=== PATIENT | male | born 1940 | race Caucasian/White ===

== ENCOUNTER 2016-12-29 15:53 | Inpatient (IN) | payer MEDICARE ==
[~2016-12-29] VITALS: Ht 182.9 cm; Wt 133.7 kg
[~2016-12-29 15:53] MED LIST: ASPIRIN 81M81 MG/TA2 PO; COREG12.5 MG PO; DIGITEK0.25 MG PO; LIPITOR 40MG TA40 MG PO; LOTENSIN40 MG PO; NORCO 325 MG-7.1 TAB PO; SYNTHROID 0.0.025 MG PO; ZYLOPRIM 300MG300 MG PO
[2016-12-29 16:28] LABS: BASO % 0.4 % (0.0-2.0); EOS # 0.1 (0.0-0.7); EOS % 1.7 % (0-4.0); GRAN % 75.5 % (42.2-75.2); LYMPH # 0.8 (1.2-3.4); LYMPH % 15.5 % (20.0-51.0); MEAN CELL VOLUME 99 fl (80.0-100.0); MEAN CORPUSCULAR HGB CONC 30 g/dl (33.0-37.0); MONO # 0.4 (0.1-0.6); MONO % 6.7 % (1.7-9.3); PLATELET COUNT 80 K/mm3 (130-400); RED BLOOD COUNT 2.68 M/mm3 (4.20-5.60); REDCELL DISTRIBUTION WIDTH-CV 16.9 % (11.5-14.5); WHITE BLOOD COUNT 5.3 K/mm3 (4.8-10.8)
[2016-12-29 16:39] LABS: ADJUSTED CALCIUM 8.4 mg/dL (8.4-10.2); ALANINE AMINOTRANSFERASE 27 U/L (21-72); ALKALINE PHOSPHATASE 98 U/L (50-136); ANION GAP 12 mmol/L (7-16); BILIRUBIN,TOTAL 1.2 mg/dL (0.0-1.0); BLOOD UREA NITROGEN 29 mg/dL (9-20); CALCIUM 8.4 mg/dL (8.4-10.2); CARBON DIOXIDE 30 mmol/L (22-30); CHLORIDE 96 mmol/L (98-107); CREATININE, serum 1.97 mg/dL (0.66-1.25); GLUCOSE 91 mg/dL (74-106); POTASSIUM 4.8 mmol/L (3.4-5.0); SODIUM 138 mmol/L (137-145); TOTAL PROTEIN 7.4 gm/dL (6.4-8.2)
[2016-12-29 16:47] LABS: B-TYPE NATRIURETIC PEPTIDE 6490 pg/mL (0-125)
[2016-12-29 16:50] LABS: HEMATOCRIT 26.6 % (42.0-52.0); MEAN CORPUSCULAR HEMOGLOBIN 30 pg (27.0-31.0)
[2016-12-29 20:16] VITALS: BP 132/71; PULSE 78; TEMP 97.4
[2016-12-29 23:18] LABS: TROPONIN-I 0.026 ng/mL (0.000-0.034)
[2016-12-30 00:12] VITALS: BP 109/70; PULSE 71; TEMP 98
[2016-12-30 04:11] VITALS: BP 122/65; PULSE 71; TEMP 97.9
[2016-12-30 07:20] VITALS: BP 132/84; PULSE 41; TEMP 97.5
[2016-12-30 08:18] LABS: INR 1.2 (0.8-3.0); PROTHROMBIN TIME 13.2 SECONDS (9.7-12.8)
[2016-12-30 08:25] LABS: ADJUSTED CALCIUM 8.4 mg/dL (8.4-10.2); ALBUMIN 3.5 gm/dL (3.5-5.0); BILIRUBIN,TOTAL 1.3 mg/dL (0.0-1.0); CREATININE, serum 1.9 mg/dL (0.66-1.25); POTASSIUM 4.8 mmol/L (3.4-5.0); TOTAL PROTEIN 6.5 gm/dL (6.4-8.2)
[2016-12-30 08:28] LABS: BASO % 0.5 % (0.0-2.0); EOS # 0.1 (0.0-0.7); EOS % 1.5 % (0-4.0); GRAN # 2.9 (1.4-6.5); GRAN % 72.8 % (42.2-75.2); LYMPH # 0.7 (1.2-3.4); LYMPH % 18.4 % (20.0-51.0); MEAN CELL VOLUME 100 fl (80.0-100.0); MEAN CORPUSCULAR HGB CONC 31 g/dl (33.0-37.0); MEAN PLATELET VOLUME 10.2 fl (7.4-10.4); MONO # 0.3 (0.1-0.6); MONO % 6.3 % (1.7-9.3); PLATELET COUNT 75 K/mm3 (130-400); RED BLOOD COUNT 2.34 M/mm3 (4.20-5.60); REDCELL DISTRIBUTION WIDTH-CV 16.8 % (11.5-14.5)
[2016-12-30 08:33] LABS: HEMATOCRIT 23.5 % (42.0-52.0); HEMOGLOBIN 7.2 g/dl (13.5-18.0); MEAN CORPUSCULAR HEMOGLOBIN 31 pg (27.0-31.0)
[2016-12-30 08:34] LABS: TROPONIN-I 0.026 ng/mL (0.000-0.034)
[2016-12-30 08:53] LABS: THYROID STIMULATING HORMONE 60.7 uIU/mL (0.465-4.680)
[2016-12-30 11:02] LABS: TOTAL IRON BINDING CAPACITY 344 ug/dL (261-462)
[2016-12-30 11:59] VITALS: BP 135/86; PULSE 70; TEMP 97.6
[2016-12-30 13:13] LABS: PH 5 (5-8); SQUAMOUS EPITHELIAL None Seen /hpf; URINE APPEARANCE Clear; URINE BACTERIA None Seen /hpf; URINE BILIRUBIN Negative (NEGATIVE); URINE BLOOD 2+ (NEGATIVE); URINE COLOR Yellow; URINE GLUCOSE Negative (NEGATIVE); URINE KETONE Negative (NEGATIVE); URINE UROBILINOGEN Negative (NEGATIVE); URINE WBC 0-2 /hpf
[2016-12-30 13:15] LABS: URINE PROTEIN:CREAT RATIO 0.15 (0.00-0.14)
[2016-12-30 13:21] LABS: ARTERIAL BLD GAS O2 SATURATION 99.2 % (92-100); ARTERIAL BLD GAS TCO2 CT 33.4; ARTERIAL BLOOD GAS BASE EXCESS 4.3 (-2-2); ARTERIAL BLOOD GAS HCO3 31.5 meq/L (22-26); ARTERIAL BLOOD GAS PHT 7.32 C (7.35-7.45); ARTERIAL BLOOD GAS pH 7.32 (7.35-7.45); OXYHEMOGLOBIN 98.3 %
[2016-12-30 13:22] LABS: ARTERIAL BLOOD GAS PO2 361.8 mmHg (80-100); ARTERIAL BLOOD GAS PO2T 361.8 (80-100); ATS? YES
[2016-12-30 16:10] LABS: ARTERIAL BLD GAS TCO2 CT 30.2; ARTERIAL BLOOD GAS BASE EXCESS 2.7 (-2-2); ARTERIAL BLOOD GAS HCO3 28.7 meq/L (22-26); ARTERIAL BLOOD GAS PHT 7.37 C (7.35-7.45); ARTERIAL BLOOD GAS PO2 93.2 mmHg (80-100); ARTERIAL BLOOD GAS PO2T 93.2 (80-100); ARTERIAL BLOOD GAS pH 7.37 (7.35-7.45); OXYHEMOGLOBIN 95.3 %
[2016-12-30 16:11] LABS: ATS? YES
[2016-12-30 16:42] VITALS: BP 125/71; PULSE 83; TEMP 97
[2016-12-30 18:23] LABS: CALCIUM 8.1 mg/dL (8.4-10.2); CREATININE, serum 1.88 mg/dL (0.66-1.25); POTASSIUM 4.8 mmol/L (3.4-5.0)
[2016-12-30 18:37] LABS: TROPONIN-I 0.035 ng/mL (0.000-0.034)
[2016-12-30 20:00] VITALS: BP 136/91; PULSE 71; TEMP 99.2
[2016-12-31] VITALS (17 sets, daily range): BP systolic 99–126; BP diastolic 51–89; PULSE 63–98; TEMP 96.9–98.6
[2016-12-31 06:04] LABS: MEAN CELL VOLUME 102 fl (80.0-100.0); MEAN CORPUSCULAR HGB CONC 30 g/dl (33.0-37.0); MEAN PLATELET VOLUME 9.7 fl (7.4-10.4); PLATELET COUNT 64 K/mm3 (130-400); RED BLOOD COUNT 2.19 M/mm3 (4.20-5.60); REDCELL DISTRIBUTION WIDTH-CV 16.8 % (11.5-14.5); WHITE BLOOD COUNT 7.5 K/mm3 (4.8-10.8)
[2016-12-31 06:07] LABS: ADD PATHOLOGY DIFF REVIEW NO; HEMATOCRIT 22.3 % (42.0-52.0); HEMOGLOBIN 6.7 g/dl (13.5-18.0); MEAN CORPUSCULAR HEMOGLOBIN 31 pg (27.0-31.0)
[2016-12-31 06:18] LABS: CALCIUM 7.5 mg/dL (8.4-10.2); CREATININE, serum 1.94 mg/dL (0.66-1.25); POTASSIUM 4.5 mmol/L (3.4-5.0)
[2016-12-31 06:48] LABS: THYROID STIMULATING HORMONE 38.6 uIU/mL (0.465-4.680)
[2016-12-31 06:57] LABS: BAND 49 % (0-10); NEUTROPHILS 45 % (42.0-75.2); TOTAL CELLS COUNTED 100
[2016-12-31 06:58] LABS: PLATELET ESTIMATE DECREASED (NORMAL)
[2016-12-31 06:59] LABS: ANISOCYTOSIS 1+; HYPOCHROMIA 2+
[2017-01-01] VITALS: BP 129/93; PULSE 77; TEMP 98
[2017-01-01 00:46] LABS: HEMATOCRIT 27.1 % (42.0-52.0); HEMOGLOBIN 8.3 g/dl (13.5-18.0)
[2017-01-01 04:00] VITALS: BP 104/61; PULSE 81; TEMP 98.1
[2017-01-01 05:34] LABS: BASO % 0.1 % (0.0-2.0); EOS % 0.4 % (0-4.0); GRAN # 6.1 (1.4-6.5); GRAN % 84.3 % (42.2-75.2); LYMPH # 0.6 (1.2-3.4); LYMPH % 8.7 % (20.0-51.0); MEAN CELL VOLUME 100 fl (80.0-100.0); MEAN CORPUSCULAR HGB CONC 30 g/dl (33.0-37.0); MEAN PLATELET VOLUME 9.5 fl (7.4-10.4); MONO # 0.4 (0.1-0.6); MONO % 5.8 % (1.7-9.3); PLATELET COUNT 59 K/mm3 (130-400); RED BLOOD COUNT 2.66 M/mm3 (4.20-5.60); REDCELL DISTRIBUTION WIDTH-CV 17.3 % (11.5-14.5); WHITE BLOOD COUNT 7.2 K/mm3 (4.8-10.8)
[2017-01-01 05:42] LABS: HEMATOCRIT 26.6 % (42.0-52.0); HEMOGLOBIN 7.9 g/dl (13.5-18.0); MEAN CORPUSCULAR HEMOGLOBIN 30 pg (27.0-31.0)
[2017-01-01 05:48] LABS: CALCIUM 7.6 mg/dL (8.4-10.2); CREATININE, serum 2.23 mg/dL (0.66-1.25); PHOSPHOROUS 4.8 mg/dL (2.5-4.5); POTASSIUM 4.6 mmol/L (3.4-5.0)
[2017-01-01 08:00] VITALS: BP 96/71; PULSE 77; TEMP 97.7
[2017-01-01 12:00] VITALS: BP 99/64; PULSE 73; TEMP 97.7
[2017-01-01 15:14] VITALS: BP 92/56; PULSE 72; TEMP 97.5
[2017-01-01 16:29] LABS: CALCIUM 7.5 mg/dL (8.4-10.2); CREATININE, serum 2.49 mg/dL (0.66-1.25); POTASSIUM 4.7 mmol/L (3.4-5.0)
[2017-01-01 22:03] VITALS: BP 105/56; PULSE 70; TEMP 97.5
[2017-01-02] VITALS (7 sets, daily range): BP systolic 80–125; BP diastolic 42–73; PULSE 70–74; TEMP 97.3–98.1
[2017-01-02 01:55] LABS: ADJUSTED CALCIUM 8.4 mg/dL (8.4-10.2); ALBUMIN 2.8 gm/dL (3.5-5.0); BILIRUBIN,TOTAL 1.1 mg/dL (0.0-1.0); CALCIUM 7.4 mg/dL (8.4-10.2); CREATININE, serum 2.64 mg/dL (0.66-1.25); POTASSIUM 4.8 mmol/L (3.4-5.0); TOTAL PROTEIN 5.7 gm/dL (6.4-8.2)
[2017-01-02 07:46] LABS: BASO % 0.1 % (0.0-2.0); EOS # 0.1 (0.0-0.7); EOS % 0.9 % (0-4.0); GRAN % 85.3 % (42.2-75.2); LYMPH # 0.5 (1.2-3.4); LYMPH % 7.6 % (20.0-51.0); MEAN CELL VOLUME 100 fl (80.0-100.0); MEAN CORPUSCULAR HGB CONC 30 g/dl (33.0-37.0); MEAN PLATELET VOLUME 9.5 fl (7.4-10.4); MONO # 0.4 (0.1-0.6); PLATELET COUNT 62 K/mm3 (130-400); RED BLOOD COUNT 2.87 M/mm3 (4.20-5.60); REDCELL DISTRIBUTION WIDTH-CV 16.8 % (11.5-14.5)
[2017-01-02 07:48] LABS: HEMATOCRIT 28.7 % (42.0-52.0); HEMOGLOBIN 8.7 g/dl (13.5-18.0); MEAN CORPUSCULAR HEMOGLOBIN 30 pg (27.0-31.0)
[2017-01-02 08:03] LABS: CALCIUM 7.7 mg/dL (8.4-10.2); CREATININE, serum 2.78 mg/dL (0.66-1.25); MAGNESIUM 2.1 mg/dL (1.6-2.3); PHOSPHOROUS 5.3 mg/dL (2.5-4.5); POTASSIUM 4.9 mmol/L (3.4-5.0)
[2017-01-02 08:40] LABS: VANCOMYCIN TROUGH 18.42 ug/mL (7.00-20.00)
[2017-01-02 15:59] LABS: PERITONEAL -POLYMORPHONUCLEAR 66.3 % (0-25); PERITONEAL FLUID RBC 1000 /mm3 (0-0)
[2017-01-03] VITALS (7 sets, daily range): BP systolic 93–150; BP diastolic 33–81; PULSE 70–88; TEMP 96.6–98.5
[2017-01-03 06:21] LABS: MEAN CELL VOLUME 99 fl (80.0-100.0); MEAN CORPUSCULAR HGB CONC 30 g/dl (33.0-37.0); MEAN PLATELET VOLUME 9.9 fl (7.4-10.4); PLATELET COUNT 68 K/mm3 (130-400); RED BLOOD COUNT 2.89 M/mm3 (4.20-5.60); REDCELL DISTRIBUTION WIDTH-CV 16.5 % (11.5-14.5); WHITE BLOOD COUNT 6.8 K/mm3 (4.8-10.8)
[2017-01-03 06:26] LABS: ADD PATHOLOGY DIFF REVIEW NO; HEMATOCRIT 28.7 % (42.0-52.0); HEMOGLOBIN 8.7 g/dl (13.5-18.0); MEAN CORPUSCULAR HEMOGLOBIN 30 pg (27.0-31.0)
[2017-01-03 06:39] LABS: CALCIUM 7.5 mg/dL (8.4-10.2); CREATININE, serum 2.79 mg/dL (0.66-1.25); MAGNESIUM 2.1 mg/dL (1.6-2.3); PHOSPHOROUS 5.1 mg/dL (2.5-4.5); POTASSIUM 5.1 mmol/L (3.4-5.0)
[2017-01-03 07:18] LABS: BAND 11 % (0-10); NEUTROPHILS 83 % (42.0-75.2); TOTAL CELLS COUNTED 100
[2017-01-03 07:19] LABS: ANISOCYTOSIS 1+; HYPOCHROMIA 1+
[2017-01-03 07:20] LABS: PLATELET ESTIMATE DECREASED (NORMAL)
[2017-01-03 10:59] LABS: PLEURAL FLUID - PMN 57.2 % (0-25)
[2017-01-03 11:08] LABS: PLEURAL FLUID RIGHT SIDE
[2017-01-03 11:09] LABS: PLEURAL FLUID APPEARANCE CLEAR; PLEURAL FLUID COLOR YELLOW
[2017-01-03 12:08] LABS: GLUCOSE,PLEURAL FLUID 74 mg/dL
[2017-01-03 23:10] LABS: Fluid Type Pleural (())
[2017-01-04 04:28] VITALS: BP 122/63; PULSE 74; TEMP 98.1
[2017-01-04 07:31] LABS: INR 1.2 (0.8-3.0)
[2017-01-04 07:32] LABS: BASO % 0.4 % (0.0-2.0); EOS # 0.1 (0.0-0.7); EOS % 1.1 % (0-4.0); LYMPH # 0.7 (1.2-3.4); LYMPH % 14.1 % (20.0-51.0); MEAN CELL VOLUME 99 fl (80.0-100.0); MEAN CORPUSCULAR HGB CONC 31 g/dl (33.0-37.0); MEAN PLATELET VOLUME 10.4 fl (7.4-10.4); MONO # 0.4 (0.1-0.6); MONO % 7.8 % (1.7-9.3); PLATELET COUNT 72 K/mm3 (130-400); RED BLOOD COUNT 2.88 M/mm3 (4.20-5.60); REDCELL DISTRIBUTION WIDTH-CV 16.4 % (11.5-14.5); WHITE BLOOD COUNT 5.2 K/mm3 (4.8-10.8)
[2017-01-04 07:40] LABS: HEMATOCRIT 28.4 % (42.0-52.0); HEMOGLOBIN 8.7 g/dl (13.5-18.0); MEAN CORPUSCULAR HEMOGLOBIN 30 pg (27.0-31.0)
[2017-01-04 07:46] LABS: ADJUSTED CALCIUM 8.7 mg/dL (8.4-10.2); ALBUMIN 2.6 gm/dL (3.5-5.0); BILIRUBIN,TOTAL 1.1 mg/dL (0.0-1.0); CALCIUM 7.6 mg/dL (8.4-10.2); CREATININE, serum 2.65 mg/dL (0.66-1.25); POTASSIUM 4.6 mmol/L (3.4-5.0); TOTAL PROTEIN 5.5 gm/dL (6.4-8.2)
[2017-01-04 09:08] VITALS: BP 138/76; PULSE 70; TEMP 98.4
[2017-01-04 11:46] VITALS: BP 126/62; PULSE 84; TEMP 98
[2017-01-04 16:32] VITALS: BP 115/64; PULSE 79; TEMP 98.5
[2017-01-04 20:26] VITALS: BP 156/95; PULSE 85; TEMP 97.1
[2017-01-04 20:47] LABS: ANA SCREEN with REFLEX Negative (Negative)
[2017-01-05 00:20] VITALS: BP 136/61; PULSE 89; TEMP 98.8
[2017-01-05 03:35] VITALS: BP 144/85; PULSE 79; TEMP 97.4
[2017-01-05 07:14] LABS: BASO % 0.4 % (0.0-2.0); EOS # 0.1 (0.0-0.7); EOS % 1.5 % (0-4.0); GRAN # 3.2 (1.4-6.5); GRAN % 68.1 % (42.2-75.2); LYMPH # 0.8 (1.2-3.4); LYMPH % 18.1 % (20.0-51.0); MEAN CELL VOLUME 97 fl (80.0-100.0); MEAN CORPUSCULAR HGB CONC 31 g/dl (33.0-37.0); MEAN PLATELET VOLUME 10.2 fl (7.4-10.4); MONO # 0.5 (0.1-0.6); MONO % 10.8 % (1.7-9.3); PLATELET COUNT 75 K/mm3 (130-400); RED BLOOD COUNT 2.95 M/mm3 (4.20-5.60); REDCELL DISTRIBUTION WIDTH-CV 16.4 % (11.5-14.5); WHITE BLOOD COUNT 4.7 K/mm3 (4.8-10.8)
[2017-01-05 07:24] LABS: HEMATOCRIT 28.6 % (42.0-52.0); HEMOGLOBIN 8.8 g/dl (13.5-18.0); MEAN CORPUSCULAR HEMOGLOBIN 30 pg (27.0-31.0)
[2017-01-05 07:31] LABS: CALCIUM 7.8 mg/dL (8.4-10.2); CREATININE, serum 2.32 mg/dL (0.66-1.25); POTASSIUM 4.4 mmol/L (3.4-5.0)
[2017-01-05 08:20] VITALS: BP 126/55; PULSE 73; TEMP 98.2
[2017-01-05 12:52] VITALS: BP 123/62; BP 141/109; PULSE 73; TEMP 98.2
[2017-01-05 15:22] VITALS: BP 114/49; PULSE 76; TEMP 98.2
[2017-01-05 22:59] LABS: IEPS IGA 463 mg/dL (101-645); IEPS IGG 967 mg/dL (540-1822); SERUM PROTEIN TOTAL 5.3 g/dL (6.0-7.6)
[2017-01-05 23:15] VITALS: BP 121/53; PULSE 73; TEMP 98.6
[2017-01-06 00:46] LABS: HAPTOGLOBIN 151 mg/dL (36-195)
[2017-01-06 00:50] VITALS: BP 121/53; PULSE 73; TEMP 98.2
[2017-01-06 02:52] VITALS: BP 138/69; PULSE 75; TEMP 98.6
[2017-01-06 06:38] LABS: MEAN CELL VOLUME 97 fl (80.0-100.0); MEAN CORPUSCULAR HGB CONC 31 g/dl (33.0-37.0); MEAN PLATELET VOLUME 10.1 fl (7.4-10.4); PLATELET COUNT 66 K/mm3 (130-400); RED BLOOD COUNT 2.88 M/mm3 (4.20-5.60); REDCELL DISTRIBUTION WIDTH-CV 16.4 % (11.5-14.5)
[2017-01-06 06:48] LABS: ADD PATHOLOGY DIFF REVIEW NO; HEMOGLOBIN 8.8 g/dl (13.5-18.0); MEAN CORPUSCULAR HEMOGLOBIN 31 pg (27.0-31.0)
[2017-01-06 06:55] LABS: CALCIUM 7.9 mg/dL (8.4-10.2); CREATININE, serum 2.05 mg/dL (0.66-1.25); POTASSIUM 4.4 mmol/L (3.4-5.0)
[2017-01-06 07:38] VITALS: BP 127/79; PULSE 53; TEMP 97.9
[2017-01-06 08:48] LABS: ANISOCYTOSIS 1+; BAND 6 % (0-10); EOSINOPHIL 2 % (0-4); NEUTROPHILS 61 % (42.0-75.2); PLATELET ESTIMATE DECREASED (NORMAL); TOTAL CELLS COUNTED 100
[2017-01-06 11:08] VITALS: BP 99/41; PULSE 80; TEMP 97.1
[2017-01-06] MEDS ORDERED: FERROUS SU325 MG/TAB PO (11:25)
[2017-01-06] MEDS ORDERED: FLEXERIL5 MG PO (11:25)
[2017-01-06] MEDS ORDERED: LANOXIN 0.25M0.25 MG PO (11:26)
[2017-01-06] MEDS ORDERED: COREG 3.123.125 MG/T PO (11:28)
[2017-01-06] MEDS ORDERED: ALDACTONE50 MG PO (11:29)
[2017-01-06] MEDS ORDERED: ZAROXOLYN 2.52.5 MG PO (11:30)
[2017-01-06] MEDS ORDERED: K-TAB20 PO (11:33)
[2017-01-06] MEDS ORDERED: LASIX 40MG TABL40 MG PO (11:33)
[2017-01-06] MEDS ORDERED: PROTONIX 40MG T40 MG PO (11:35)
[2017-01-06] MEDS ORDERED: NORCO 325 MG-51 TAB PO ×2 (11:42)
[2017-01-06 13:29] LABS: ALBUMIN FRACTION 2.8 g/dL (2.6-4.5); ALPHA 1 FRACTION 0.4 g/dL (0.3-0.5); ALPHA 1 PERCENTAGE 7.4 % (3.4-8.3); ALPHA 2 FRACTION 0.6 g/dL (0.6-1.2); ALPHA 2 PERCENTAGE 10.9 % (8.4-17.5); BETA 1 FRACTION 0.4 g/dL (0.4-0.6); BETA 1 PERCENTAGE 6.7 % (5.4-8.9); BETA 2 FRACTION 0.4 g/dL (0.2-0.5); BETA 2 PERCENTAGE 7.6 % (3.8-7.7); GAMMA FRACTION 0.8 g/dL (0.4-1.7); GAMMA PERCENTAGE 15.4 % (8.1-23.0); IEPS IGM 94 mg/dL (22-240)
[2017-01-06] MEDS ORDERED: NS INT FLUSH 1010 ML IV (15:23)
[2017-01-06] MEDS ORDERED: HEPARIN LOCK FLU5 M1 IV (15:23)
[2017-01-06 17:44] LABS: A1 PHENOTYPE 212 mg/dL (())
[2017-01-07 10:18] LABS: KAPPA FREE LIGHT CHAIN-SERUM 6.89 mg/dL (()); KAPPA LAMBDA RATIO 1.93 (())
== END 2017-01-06 18:59 | DRG 291 ==
LOC: COL.ER 15:53 → MEDICAL 17:07 → ICU 12-30 10:51 → MEDICAL 01-01 15:05
PROVIDERS: Emergency Medicine; Family Medicine; Internal Medicine; Internal Medicine Gastroenterology; Nurse Practitioner Family; Physician Assistant
PROC: 0W9G3ZX Drainage of Peritoneal Cavity, Percutaneous Approach, Diagnostic (ICD-10-PCS; principal; 2017-01-02)
PROC: 0W993ZX Drainage of Right Pleural Cavity, Percutaneous Approach, Diagnostic (ICD-10-PCS; 2017-01-03)
DX: I13.0 Hypertensive heart and chronic kidney disease with heart failure and stage 1 through stage 4 chronic kidney disease, or unspecified chronic kidney disease (principal); I50.23 Acute on chronic systolic (congestive) heart failure; N17.9 Acute kidney failure, unspecified; R18.8 Other ascites; E87.1 Hypo-osmolality and hyponatremia; E87.3 Alkalosis; K76.6 Portal hypertension; Z68.42 Body mass index [BMI] 45.0-49.9, adult; I83.212 Varicose veins of right lower extremity with both ulcer of calf and inflammation; I83.222 Varicose veins of left lower extremity with both ulcer of calf and inflammation; N18.3 Chronic kidney disease, stage 3 (moderate); I42.0 Dilated cardiomyopathy; I48.91 Unspecified atrial fibrillation; D64.9 Anemia, unspecified; E03.2 Hypothyroidism due to medicaments and other exogenous substances; T38.1X6A Underdosing of thyroid hormones and substitutes, initial encounter; Z95.0 Presence of cardiac pacemaker; K74.69 Other cirrhosis of liver; E66.01 Morbid (severe) obesity due to excess calories
CPT/HCPCS: 99223-AI; 99232-AI; 99233-AI; 99239; A4315; C1751; J1644; J1940; J2270; J2543; J3370; J7040; J7050; P9016

== ENCOUNTER → 2017-01-10 | Outpatient (REF) ==
[~2017-01-10] MED LIST changes: +ALDACTONE50 MG PO; +COREG 3.123.125 MG/T PO; +FERROUS SU325 MG/TAB PO; +FLEXERIL5 MG PO; +HEPARIN LOCK FLU5 M1 IV; +K-TAB20 PO; +LANOXIN 0.25M0.25 MG PO; +LASIX 40MG TABL40 MG PO; +NORCO 325 MG-51 TAB PO; +NS INT FLUSH 1010 ML IV; +PROTONIX 40MG T40 MG PO; +ZAROXOLYN 2.52.5 MG PO
== END ==
LOC: ZAIV 06:00
DX: Z01.89 Encounter for other specified special examinations (principal)

== ENCOUNTER → 2017-01-16 | Outpatient (CLI) | payer MEDICARE | LOC: WCC 09:48 | DX: L97.829 Non-pressure chronic ulcer of other part of left lower leg with unspecified severity (principal); L97.519 Non-pressure chronic ulcer of other part of right foot with unspecified severity; L97.419 Non-pressure chronic ulcer of right heel and midfoot with unspecified severity; L98.499 Non-pressure chronic ulcer of skin of other sites with unspecified severity; S01.312A Laceration without foreign body of left ear, initial encounter; M62.3 Immobility syndrome (paraplegic); R60.1 Generalized edema; L03.114 Cellulitis of left upper limb | CPT/HCPCS: 13919; 13973; A6199; G0463 ==

== ENCOUNTER → 2017-01-20 | Outpatient (CLI) | payer MEDICARE | LOC: WCC 12:09 | DX: L89.612 Pressure ulcer of right heel, stage 2 (principal); I87.2 Venous insufficiency (chronic) (peripheral); L97.929 Non-pressure chronic ulcer of unspecified part of left lower leg with unspecified severity; S91.114A Laceration without foreign body of right lesser toe(s) without damage to nail, initial encounter | CPT/HCPCS: G0463 ==

== ENCOUNTER → 2017-01-25 | Outpatient (CLI) | payer MEDICARE | LOC: WCC 11:14 | DX: L89.612 Pressure ulcer of right heel, stage 2 (principal); I87.2 Venous insufficiency (chronic) (peripheral); L97.929 Non-pressure chronic ulcer of unspecified part of left lower leg with unspecified severity; S91.114A Laceration without foreign body of right lesser toe(s) without damage to nail, initial encounter | CPT/HCPCS: 27517; A6207; G0463 ==

== ENCOUNTER → 2017-02-01 | Outpatient (CLI) | payer MEDICARE | LOC: WCC 10:36 | DX: I87.2 Venous insufficiency (chronic) (peripheral) (principal); L89.619 Pressure ulcer of right heel, unspecified stage | CPT/HCPCS: 17717; 27517; A6207; A6212; G0463 ==

== ENCOUNTER → 2017-02-13 | Outpatient (CLI) | payer MEDICARE | LOC: WCC 14:30 | DX: R60.1 Generalized edema (principal) | CPT/HCPCS: 17717; A6212; G0463 ==

== ENCOUNTER 2017-11-18 22:55 | Emergency (ER) | payer MEDICARE ==
[~2017-11-18] VITALS: Wt 125.0 kg
[~2017-11-18 22:55] MED LIST changes: +EYE DROPS REDNE15 ML OP
[2017-11-18 22:59] VITALS: TEMP 99.6
[2017-11-18 23:48] LABS: MEAN CELL VOLUME 95 fl (80.0-100.0); MEAN CORPUSCULAR HGB CONC 31 g/dl (33.0-37.0); MEAN PLATELET VOLUME 9.8 fl (7.4-10.4); PLATELET COUNT 90 K/mm3 (130-400); RED BLOOD COUNT 2.42 M/mm3 (4.20-5.60); REDCELL DISTRIBUTION WIDTH-CV 15.7 % (11.5-14.5)
[2017-11-18 23:56] LABS: HEMATOCRIT 22.9 % (42.0-52.0); MEAN CORPUSCULAR HEMOGLOBIN 29 pg (27.0-31.0)
[2017-11-19 00:01] LABS: ALANINE AMINOTRANSFERASE 27 U/L (21-72); ALBUMIN 3.2 gm/dL (3.5-5.0); ALKALINE PHOSPHATASE 90 U/L (50-136); ANION GAP 12 mmol/L (7-16); AST,SGOT 31 U/L (15-37); BILIRUBIN,TOTAL 0.8 mg/dL (0.0-1.0); BLOOD UREA NITROGEN 37 mg/dL (9-20); CALCIUM 8.3 mg/dL (8.4-10.2); CARBON DIOXIDE 24 mmol/L (22-30); CHLORIDE 100 mmol/L (98-107); CREATININE, serum 2.26 mg/dL (0.66-1.25); GLUCOSE 97 mg/dL (74-106); LIPASE 195 U/L (23-300); MAGNESIUM 1.9 mg/dL (1.6-2.3); PHOSPHOROUS 4.5 mg/dL (2.5-4.5); POTASSIUM 5.4 mmol/L (3.4-5.0); SODIUM 136 mmol/L (137-145); TOTAL PROTEIN 6.8 gm/dL (6.4-8.2)
[2017-11-19 00:03] LABS: INR 1.2 (0.8-3.0)
[2017-11-19 00:06] LABS: PARTIAL THROMBOPLASTIN TIME 35.6 SECONDS (26.0-37.0)
[2017-11-19 00:13] LABS: TROPONIN-I 0.021 ng/mL (0.000-0.034)
[2017-11-19] MEDS ORDERED: FLEXERIL5 MG PO (00:15)
[2017-11-19] MEDS ORDERED: LEVOXYL0.075 MG PO (00:15)
[2017-11-19] MEDS ORDERED: ZAROXOLYN 2.52.5 MG (00:16)
[2017-11-19] MEDS ORDERED: ALDACTONE 25MG25 M1 PO (00:16)
[2017-11-19] MEDS ORDERED: LASIX 40MG TABL40 MG (00:17)
[2017-11-19] MEDS ORDERED: K-TAB20 (00:17)
[2017-11-19] MEDS ORDERED: ZYLOPRIM 300MG300 MG PO (00:18)
[2017-11-19 00:43] LABS: DIGOXIN < 0.4 ng/mL (0.8-2.0)
[2017-11-19] MEDS ORDERED: LASIX 80MG TABL80 MG PO (01:23)
[2017-11-19 01:43] LABS: BAND 22 % (0-10); BASOPHIL 1 % (0-2); LYMPHOCYTE 5 % (20.0-51.0); METAMYELOCYTE 2 % (0-0); NEUTROPHILS 70 % (42.0-75.2)
[2017-11-19 01:44] LABS: ANISOCYTOSIS 2+; HYPOCHROMIA 3+; PLATELET ESTIMATE DECREASED (NORMAL)
[2017-11-19 02:50] VITALS: BP 106/79; PULSE 112
== END 2017-11-19 02:40 | disposition short-term general hospital (02) ==
LOC: COL.ER 22:55
PROVIDERS: Emergency Medicine
DX: I13.0 Hypertensive heart and chronic kidney disease with heart failure and stage 1 through stage 4 chronic kidney disease, or unspecified chronic kidney disease (principal); N18.9 Chronic kidney disease, unspecified; I50.9 Heart failure, unspecified; D64.9 Anemia, unspecified; E03.9 Hypothyroidism, unspecified; I48.91 Unspecified atrial fibrillation; I42.9 Cardiomyopathy, unspecified; Z86.2 Personal history of diseases of the blood and blood-forming organs and certain disorders involving the immune mechanism; Z87.19 Personal history of other diseases of the digestive system; Z95.810 Presence of automatic (implantable) cardiac defibrillator; Z79.82 Long term (current) use of aspirin
CPT/HCPCS: J1940

== ENCOUNTER 2018-03-09 08:30 | Emergency (ER) | payer MEDICARE ==
[~2018-03-09 08:30] MED LIST changes: +ALDACTONE 25MG25 M1 PO; +LASIX 40MG TABL40 MG; +LASIX 80MG TABL80 MG PO; +LEVOXYL0.075 MG PO; +ZAROXOLYN 2.52.5 MG
[2018-03-09 08:35] VITALS: TEMP 94.6
[2018-03-09 08:57] LABS: BASO % 0.3 % (0.0-2.0); EOS # 0.2 (0.0-0.7); EOS % 4.6 % (0-4.0); GRAN # 2.1 (1.4-6.5); GRAN % 56.8 % (42.2-75.2); LYMPH # 1.1 (1.2-3.4); LYMPH % 29.5 % (20.0-51.0); MEAN CELL VOLUME 94 fl (80.0-100.0); MEAN CORPUSCULAR HGB CONC 30 g/dl (33.0-37.0); MEAN PLATELET VOLUME 9.2 fl (7.4-10.4); MONO # 0.3 (0.1-0.6); MONO % 8.5 % (1.7-9.3); PLATELET COUNT 86 K/mm3 (130-400); RED BLOOD COUNT 3.44 M/mm3 (4.20-5.60); REDCELL DISTRIBUTION WIDTH-CV 16.6 % (11.5-14.5)
[2018-03-09 09:03] LABS: HEMATOCRIT 32.3 % (42.0-52.0); HEMOGLOBIN 9.7 g/dl (13.5-18.0); MEAN CORPUSCULAR HEMOGLOBIN 28 pg (27.0-31.0)
[2018-03-09 09:05] LABS: ALANINE AMINOTRANSFERASE 20 U/L (21-72); ALBUMIN 3.2 gm/dL (3.5-5.0); ALKALINE PHOSPHATASE 100 U/L (50-136); ANION GAP 7 mmol/L (7-16); AST,SGOT 28 U/L (15-37); BILIRUBIN,TOTAL 0.5 mg/dL (0.0-1.0); BLOOD UREA NITROGEN 25 mg/dL (9-20); CALCIUM 7.7 mg/dL (8.4-10.2); CARBON DIOXIDE 28 mmol/L (22-30); CHLORIDE 104 mmol/L (98-107); CREATININE, serum 2.09 mg/dL (0.66-1.25); GLUCOSE 85 mg/dL (74-106); POTASSIUM 5.1 mmol/L (3.4-5.0); SODIUM 140 mmol/L (137-145)
[2018-03-09] MEDS ORDERED: SOMA250 MG PO (09:09)
[2018-03-09 09:52] LABS: INR 1.1 (0.8-3.0); PROTHROMBIN TIME 12.2 SECONDS (9.7-12.8)
[2018-03-09] MEDS ORDERED: SYNTHROID0.1 MG/TAB PO (13:12)
[2018-03-09] MEDS ORDERED: PERCOCET 325 MG1 TA2 PO (13:14)
[2018-03-09 14:12] VITALS: BP 110/77; PULSE 105
== END 2018-03-09 14:50 | disposition home or self-care (01) ==
LOC: COL.ER 08:30
PROVIDERS: Emergency Medicine
DX: R60.1 Generalized edema (principal); E03.9 Hypothyroidism, unspecified; N18.9 Chronic kidney disease, unspecified; I50.9 Heart failure, unspecified; I48.91 Unspecified atrial fibrillation; Z86.73 Personal history of transient ischemic attack (TIA), and cerebral infarction without residual deficits

== ENCOUNTER 2018-03-14 08:25 | Emergency (ER) | payer MEDICARE ==
[~2018-03-14] VITALS: Ht 152.4 cm; Wt 118.2 kg
[~2018-03-14 08:25] MED LIST changes: +PERCOCET 325 MG1 TA2 PO; +SOMA250 MG PO; +SYNTHROID0.1 MG/TAB PO
[2018-03-14 08:29] VITALS: TEMP 97.6
[2018-03-14 09:33] VITALS: BP 116/91; PULSE 83
== END 2018-03-14 09:25 | disposition home or self-care (01) ==
LOC: COL.ER 08:25
DX: K74.60 Unspecified cirrhosis of liver (principal); I50.9 Heart failure, unspecified; R18.8 Other ascites; I42.9 Cardiomyopathy, unspecified

== ENCOUNTER → 2018-04-09 | Outpatient (CLI) | payer MEDICARE ==
[~2018-04-09] VITALS: Ht 182.9 cm; Wt 135.0 kg
[~2018-04-09] MED LIST changes: +ROXICODONE 55 MG/TAB PO
[2018-04-09 13:42] VITALS: BP 103/74; PULSE 76
[2018-04-09 15:25] VITALS: BP 98/65; PULSE 80
== END ==
LOC: COL.RAD 13:15
DX: K70.31 Alcoholic cirrhosis of liver with ascites (principal)

== ENCOUNTER → 2018-12-03 | Outpatient (CLI) | payer MEDICARE ==
[~2018-12-03] VITALS: Ht 182.9 cm; Wt 122.7 kg
[2018-12-03 11:38] VITALS: BP 120/80; PULSE 71
[2018-12-03 13:45] VITALS: BP 118/80; PULSE 74
== END ==
LOC: COL.RAD 11:11
DX: K70.31 Alcoholic cirrhosis of liver with ascites (principal); I35.0 Nonrheumatic aortic (valve) stenosis; E03.9 Hypothyroidism, unspecified; K42.9 Umbilical hernia without obstruction or gangrene; N18.3 Chronic kidney disease, stage 3 (moderate); Z91.11 Patient's noncompliance with dietary regimen; Z95.0 Presence of cardiac pacemaker

== ENCOUNTER 2020-03-04 11:01 | Emergency (ER) | payer MEDICARE ==
[~2020-03-04] VITALS: Ht 182.9 cm; Wt 113.6 kg
[~2020-03-04 11:01] MED LIST changes: +SYNTHROID 0.10.15 MG PO
[2020-03-04 12:03] LABS: ALBUMIN 3.3 gm/dL (3.5-5.0); BASO % 0.7 % (0.0-2.0); BILIRUBIN,TOTAL 0.7 mg/dL (0.0-1.0); C-REACTIVE PROTEIN 1.9 mg/dL (0.0-0.9); CALCIUM 8.1 mg/dL (8.4-10.2); CREATININE, serum 1.79 (0.66-1.25); EOS # 0.1 (0.0-0.7); EOS % 4.6 % (0-4.0); GRAN # 1.7 (1.4-6.5); GRAN % 58.7 % (42.2-75.2); LYMPH # 0.7 (1.2-3.4); LYMPH % 25.4 % (20.0-51.0); MEAN CELL VOLUME 90 fl (80.0-100.0); MEAN CORPUSCULAR HGB CONC 30 g/dl (33.0-37.0); MEAN PLATELET VOLUME 10.3 fl (7.4-10.4); MONO # 0.3 (0.1-0.6); MONO % 10.2 % (1.7-9.3); PLATELET COUNT 63 K/mm3 (130-400); POTASSIUM 4.9 mmol/L (3.4-5.0); REDCELL DISTRIBUTION WIDTH-CV 15.7 % (11.5-14.5); TOTAL PROTEIN 6.7 gm/dL (6.4-8.2)
[2020-03-04 12:07] LABS: HEMATOCRIT 31.5 % (42.0-52.0); HEMOGLOBIN 9.4 g/dl (13.5-18.0); INR 1.1 (0.8-3.0); MEAN CORPUSCULAR HEMOGLOBIN 27 pg (27.0-31.0); PROTHROMBIN TIME 12.4 SECONDS (9.7-12.8)
[2020-03-04 15:47] LABS: PERITONEAL -POLYMORPHONUCLEAR 8.1 % (0-25); PERITONEAL FLUID RBC 0 /mm3 (0-0)
[2020-03-04 21:32] VITALS: BP 95/65; PULSE 89; TEMP 97.6
== END 2020-03-04 22:18 | disposition home or self-care (01) ==
LOC: COL.ER 11:01
PROVIDERS: Emergency Medicine
DX: R18.8 Other ascites (principal); Z79.890 Hormone replacement therapy
CPT/HCPCS: J7030; P9047

== ENCOUNTER 2020-07-15 17:55 | Emergency (ER) | payer MEDICARE ==
[2020-07-15 19:05] LABS: BASO % 0.6 % (0.0-2.0); EOS # 0.1 (0.0-0.7); EOS % 2.3 % (0-4.0); GRAN # 2.5 (1.4-6.5); GRAN % 70.7 % (42.2-75.2); LYMPH # 0.6 (1.2-3.4); MEAN CELL VOLUME 87 fl (80.0-100.0); MEAN CORPUSCULAR HGB CONC 30 g/dl (33.0-37.0); MONO # 0.3 (0.1-0.6); MONO % 9.1 % (1.7-9.3); PLATELET COUNT 99 K/mm3 (130-400); RED BLOOD COUNT 3.63 M/mm3 (4.20-5.60); REDCELL DISTRIBUTION WIDTH-CV 14.6 % (11.5-14.5)
[2020-07-15 19:09] LABS: HEMATOCRIT 31.7 % (42.0-52.0); HEMOGLOBIN 9.4 g/dl (13.5-18.0); MEAN CORPUSCULAR HEMOGLOBIN 26 pg (27.0-31.0)
[2020-07-15 19:15] LABS: ALBUMIN 3.6 gm/dL (3.5-5.0); BILIRUBIN,TOTAL 0.5 mg/dL (0.0-1.0); C-REACTIVE PROTEIN 2.8 mg/dL (0.0-0.9); CALCIUM 8.2 mg/dL (8.4-10.2); CREATININE, serum 2.13 (0.66-1.25); POTASSIUM 4.8 mmol/L (3.4-5.0); TOTAL PROTEIN 7.4 gm/dL (6.4-8.2)
[2020-07-15 19:25] LABS: TROPONIN-I 0.02 ng/mL (0.000-0.035)
[2020-07-15 19:43] LABS: THYROID STIMULATING HORMONE 48.3 uIU/mL (0.465-4.680)
[2020-07-15 20:58] VITALS: BP 115/68; PULSE 73; TEMP 97.7
== END 2020-07-15 21:00 | disposition home or self-care (01) ==
LOC: COL.ER 17:55
PROVIDERS: Emergency Medicine
DX: R14.0 Abdominal distension (gaseous) (principal); R18.8 Other ascites; E03.9 Hypothyroidism, unspecified; I50.9 Heart failure, unspecified; I48.91 Unspecified atrial fibrillation; Z87.891 Personal history of nicotine dependence; Z95.0 Presence of cardiac pacemaker; Z79.890 Hormone replacement therapy

== ENCOUNTER → 2020-07-16 | Outpatient (CLI) | payer MEDICARE ==
[2020-07-16 10:29] VITALS: BP 116/79; PULSE 73
[2020-07-16 12:30] VITALS: BP 114/66; PULSE 74
== END ==
LOC: COL.RAD 09:57
DX: R14.0 Abdominal distension (gaseous) (principal); R18.8 Other ascites

== ENCOUNTER 2020-08-20 13:40 | Inpatient (IN) | payer MEDICARE ==
[~2020-08-20] VITALS: Ht 182.9 cm; Wt 103.2 kg
[2020-08-20 15:21] LABS: BASO % 0.5 % (0.0-2.0); EOS # 0.1 (0.0-0.7); EOS % 2.6 % (0-4.0); GRAN # 2.8 (1.4-6.5); GRAN % 70.3 % (42.2-75.2); LYMPH # 0.6 (1.2-3.4); LYMPH % 15.9 % (20.0-51.0); MEAN CELL VOLUME 86 fl (80.0-100.0); MEAN CORPUSCULAR HGB CONC 30 g/dl (33.0-37.0); MEAN PLATELET VOLUME 9.2 fl (7.4-10.4); MONO # 0.4 (0.1-0.6); MONO % 10.2 % (1.7-9.3); PLATELET COUNT 113 K/mm3 (130-400); RED BLOOD COUNT 3.29 M/mm3 (4.20-5.60); REDCELL DISTRIBUTION WIDTH-CV 15.6 % (11.5-14.5)
[2020-08-20 15:22] LABS: HEMATOCRIT 28.4 % (42.0-52.0); HEMOGLOBIN 8.4 g/dl (13.5-18.0); MEAN CORPUSCULAR HEMOGLOBIN 26 pg (27.0-31.0)
[2020-08-20 15:31] LABS: ALBUMIN 3.4 gm/dL (3.5-5.0); BILIRUBIN,TOTAL 0.5 mg/dL (0.0-1.0); CALCIUM 8.2 mg/dL (8.4-10.2); CREATININE, serum 1.81 (0.66-1.25); INR 1.1 (0.8-3.0); PROTHROMBIN TIME 12.7 SECONDS (9.7-12.8)
[2020-08-20 15:33] LABS: POTASSIUM 5.9 mmol/L (3.4-5.0)
[2020-08-20 15:43] LABS: TROPONIN-I 0.019 ng/mL (0.000-0.035)
[2020-08-20 16:01] LABS: TSH w REFLEX 42.7 uIU/mL (0.465-4.680)
[2020-08-20 21:25] VITALS: BP 101/62; PULSE 71; TEMP 97.2
[2020-08-20 22:11] LABS: CALCIUM 8.3 mg/dL (8.4-10.2); CREATININE, serum 1.75 (0.66-1.25)
[2020-08-20 22:27] LABS: ARTERIAL BLD GAS O2 SATURATION 95.8 % (92-100); ARTERIAL BLOOD GAS BASE EXCESS 0.3 (-2-2); ARTERIAL BLOOD GAS HCO3 25.3 meq/L (22-26); ARTERIAL BLOOD GAS PCO2 42.6 mmHg (35-45); ARTERIAL BLOOD GAS PO2 81.8 mmHg (80-100); ARTERIAL BLOOD GAS pH 7.39 (7.35-7.45)
[2020-08-20] MEDS ORDERED: K-DUR20 MEQ PO (23:50)
[2020-08-20] MEDS ORDERED: COREG 6.256.25 MG/TA PO (23:50)
[2020-08-20] MEDS ORDERED: LASIX 40MG TABL40 MG PO (23:51)
[2020-08-21] VITALS (7 sets, daily range): BP systolic 92–143; BP diastolic 47–84; PULSE 75–84; TEMP 97.4–98.1
[2020-08-21 00:47] LABS: CALCIUM 8.3 mg/dL (8.4-10.2); CREATININE, serum 1.83 (0.66-1.25); MAGNESIUM 2.2 mg/dL (1.6-2.3); PHOSPHOROUS 3.7 mg/dL (2.5-4.5); POTASSIUM 5.2 mmol/L (3.4-5.0)
[2020-08-21 02:55] LABS: CALCIUM 8.3 mg/dL (8.4-10.2); CREATININE, serum 1.87 (0.66-1.25); POTASSIUM 5.1 mmol/L (3.4-5.0)
[2020-08-21 04:26] LABS: CALCIUM 8.4 mg/dL (8.4-10.2); CHOLESTEROL RISK RATIO 3.6; CREATININE, serum 1.82 (0.66-1.25); POTASSIUM 5.1 mmol/L (3.4-5.0)
[2020-08-21 07:21] LABS: CALCIUM 8.3 mg/dL (8.4-10.2); CREATININE, serum 1.88 (0.66-1.25); POTASSIUM 5.2 mmol/L (3.4-5.0)
[2020-08-21 07:32] LABS: TROPONIN-I 0.025 ng/mL (0.000-0.035)
[2020-08-21 08:42] LABS: CALCIUM 8.3 mg/dL (8.4-10.2); CREATININE, serum 1.81 (0.66-1.25); POTASSIUM 5.3 mmol/L (3.4-5.0)
[2020-08-21 08:47] LABS: COLLECTION METHOD CLEAN CATCH
--- NOTE | 2020-08-21 09:18 | NUR ---
Initial visit; Patient thanked Bus Company Manager for looking in on him and offering God's blessings.
[2020-08-21 10:05] LABS: CALCIUM 8.4 mg/dL (8.4-10.2); CREATININE, serum 1.84 (0.66-1.25); POTASSIUM 5.2 mmol/L (3.4-5.0)
--- NOTE | 2020-08-21 11:40 | NUR ---
Health Care Specialist met with patient to discuss discharge plan. Patient states he lives with his son, Beab (ph#[phone]) in [place] and sees Dr. Parekh for primary care. [facility] with no difficulties. Patient uses a walker for ambulation and reports independence with ADLS. Patient has DPOA-HC on file which designates his son, Beba. Patient plans to return home upon discharge. SW contacted patient's son, Beba to review discharge plan. Beba would like to be contacted by Hospitalist with an update. SW spoke with Hospitalist about this request. SW requested PT/OT orders for patient and will continue to follow.
[2020-08-21 12:01] LABS: PH 5 (5-8); SQUAMOUS EPITHELIAL 0-2 /hpf; URINE APPEARANCE Clear; URINE BACTERIA Many /hpf; URINE BILIRUBIN Negative (NEGATIVE); URINE BLOOD Negative (NEGATIVE); URINE COLOR Yellow; URINE GLUCOSE Negative (NEGATIVE); URINE KETONE Negative (NEGATIVE); URINE LEUKOCYTE ESTERASE Negative (NEGATIVE); URINE NITRATE Negative (NEGATIVE); URINE PROTEIN(semi-quant) Negative (NEGATIVE); URINE RBC 0-2 /hpf; URINE UROBILINOGEN Negative (NEGATIVE)
[2020-08-21 12:11] LABS: CALCIUM 8.3 mg/dL (8.4-10.2); CREATININE, serum 1.83 (0.66-1.25); POTASSIUM 5.2 mmol/L (3.4-5.0)
[2020-08-21 12:23] LABS: TROPONIN-I 0.016 ng/mL (0.000-0.035)
--- NOTE | 2020-08-21 13:23 | NUR ---
Have assisted primary nurse Maykel RN with patient care. Patient has been uneventful throughout shift. call light and personal items within reach at all times.
[2020-08-21 14:25] LABS: CALCIUM 8.1 mg/dL (8.4-10.2); CREATININE, serum 1.77 (0.66-1.25); POTASSIUM 5.3 mmol/L (3.4-5.0)
--- NOTE | 2020-08-21 14:26 | NUR ---
Primary nurse was assisted with [id number] patient care by [facility] AD[facility] student Rona Dexter and [facility] Hannah Quick RN-BC.
--- NOTE | 2020-08-21 14:45 | NUR ---
PATIENT GOING DOWN FOR PARACENTESIS
[2020-08-21 18:35] LABS: CREATININE, serum 1.82 (0.66-1.25); POTASSIUM 5.1 mmol/L (3.4-5.0)
[2020-08-21 18:46] LABS: PERITONEAL -POLYMORPHONUCLEAR 5.4 % (0-25); PERITONEAL FLUID RBC 0 /mm3 (0-0)
--- NOTE | 2020-08-21 20:00 | NUR ---
Assessment complete. Patient is oriented and slightyl drowsy, having returned from paracentesis 2 1/2 hours prior to shift change. He complains of pain in his lower extremities when they are moved but no pain at rest. His abdomen is very edematous, as are his lower extremities. Lungs have fine crackles audible in all lobes. Breathing is shallow but unlabored. [place] box is provided. Call light in reach. Will continue to monitor.
[2020-08-21 20:41] LABS: CREATININE, serum 1.76 (0.66-1.25)
[2020-08-21 22:21] LABS: CALCIUM 7.8 mg/dL (8.4-10.2); CREATININE, serum 1.76 (0.66-1.25)
[2020-08-22] VITALS (7 sets, daily range): BP systolic 85–103; BP diastolic 44–72; PULSE 71–78; TEMP 97.4–98.8
--- NOTE | 2020-08-22 01:32 | NUR ---
BP 85/51 AT THIS TIME; PATIENT HAS JUST BEEN WOKEN UP FROM SLEEPING IN CHAIR. HE DENIES CHEST PAIN OR SOA. DREW SAMPSON NOTIFIED AND AWAITING RECS.
--- NOTE | 2020-08-22 02:02 | NUR ---
DREW SAMPSON CAME TO FLOOR TO ASSESS PATIENT, WHO IS CURRENTLY SLEEPING IN THE RECLINER. NO NEW ORDERS OBTAINED, PATIENT IS NOT SYMPTOMATIC OF LOW BP, WILL CONTINUE TO MONITOR.
[2020-08-22 07:07] LABS: BASO % 0.3 % (0.0-2.0); EOS # 0.1 (0.0-0.7); EOS % 2.2 % (0-4.0); GRAN # 2.6 (1.4-6.5); GRAN % 71.8 % (42.2-75.2); LYMPH # 0.5 (1.2-3.4); LYMPH % 14.8 % (20.0-51.0); MEAN CELL VOLUME 86 fl (80.0-100.0); MEAN CORPUSCULAR HGB CONC 30 g/dl (33.0-37.0); MEAN PLATELET VOLUME 9.6 fl (7.4-10.4); MONO # 0.4 (0.1-0.6); MONO % 10.6 % (1.7-9.3); PLATELET COUNT 104 K/mm3 (130-400); RED BLOOD COUNT 3.38 M/mm3 (4.20-5.60); REDCELL DISTRIBUTION WIDTH-CV 15.7 % (11.5-14.5)
[2020-08-22 07:13] LABS: CALCIUM 7.8 mg/dL (8.4-10.2); CREATININE, serum 1.75 (0.66-1.25); POTASSIUM 4.7 mmol/L (3.4-5.0)
[2020-08-22 07:19] LABS: HEMATOCRIT 29.2 % (42.0-52.0); HEMOGLOBIN 8.7 g/dl (13.5-18.0); MEAN CORPUSCULAR HEMOGLOBIN 26 pg (27.0-31.0)
--- NOTE | 2020-08-22 08:44 | NUR ---
Assessment complete. Patient sitting up in recliner at this time. No complaints of pain or discomfort but states that he is just "so cold". Warm balnkets were provided to the patient. Patient room was decluttered and bed was made at this time. IV site is CD&I. Also states he is hoping to go home today. No other needs were expressed at this time. Will continue to monitor. Call light is in reach.
--- NOTE | 2020-08-22 17:31 | NUR ---
Patient has had an uneventful day. No complaints of pain or discomfort. Sat up in chair for the extent of the day. He called for a standby assist to the restroom multiple times, he does well on his own with walker. Scrotal edema is very evident, pain denies pain. Will continue to monitor. Call light is in reach.
[2020-08-23 03:07] VITALS: BP 96/50; PULSE 80; TEMP 98.6
[2020-08-23 06:35] LABS: BASO % 0.2 % (0.0-2.0); EOS # 0.1 (0.0-0.7); EOS % 2.4 % (0-4.0); GRAN % 71.1 % (42.2-75.2); LYMPH # 0.6 (1.2-3.4); LYMPH % 14.8 % (20.0-51.0); MEAN CELL VOLUME 86 fl (80.0-100.0); MEAN CORPUSCULAR HGB CONC 30 g/dl (33.0-37.0); MEAN PLATELET VOLUME 9.4 fl (7.4-10.4); MONO # 0.5 (0.1-0.6); PLATELET COUNT 105 K/mm3 (130-400); RED BLOOD COUNT 3.27 M/mm3 (4.20-5.60); REDCELL DISTRIBUTION WIDTH-CV 15.8 % (11.5-14.5)
[2020-08-23 06:40] LABS: HEMATOCRIT 28.1 % (42.0-52.0); HEMOGLOBIN 8.5 g/dl (13.5-18.0); MEAN CORPUSCULAR HEMOGLOBIN 26 pg (27.0-31.0)
[2020-08-23 06:49] LABS: CALCIUM 7.4 mg/dL (8.4-10.2); CREATININE, serum 1.72 (0.66-1.25); POTASSIUM 4.7 mmol/L (3.4-5.0)
[2020-08-23 08:40] VITALS: BP 99/53; PULSE 75; TEMP 98.5
--- NOTE | 2020-08-23 09:24 | NUR ---
Assessment complete. Patient sitting up in recliner at this time. Needed to use the restroom. Patient ambulated to the restroom using walker via standby assist and did well. Abdominal distention and scrotal edema are obvious. Patient is complaining of abdominal gas pains this morning stating that he "keeps feeling like he needs to go to the bathroom but its just lots of gas and pee". I assured him that passing gas is a good thing, but that I would mention it to the provider. No other complaints of pain or discomfort were expressed. IV site is CD&I, flushed well. Patient does still complain of being cold, blankets continue to be proivded to the patient for comfort. Will continue to montior. Call light is in reach.
--- NOTE | 2020-08-23 10:31 | NUR ---
SW spoke with patient regarding home health services. Patient was unsure if he would like home health services, but he was willing to accept list of providers and said to check back with him tomorrow. Patient also stated that he would like to receive meals on wheels upon discharge. SW was unable to get in contact with Meals on Wheels via telephone. MARTA will try again Monday. Social work will continue to follow.
[2020-08-23 12:03] VITALS: BP 91/49; PULSE 70; TEMP 97.6
[2020-08-23 16:17] VITALS: BP 89/62; PULSE 83; TEMP 97.8
--- NOTE | 2020-08-23 17:25 | NUR ---
Patient has had an uneventful shift. His stomach cramps and gas pain have been persistent through the day. He requested aspirin or tylenol for the pain. Provider was contacted for this and it was given to the patient per MAR. Patient sat up in recliner most of the day, he is currently restin in bed but wasnt sure how long he would remain comfortable. Blood pressures have remained soft but stable and pt remains asymptomatic. Will continue to monitor. Call light is in reach.
[2020-08-23 20:41] VITALS: BP 90/56; PULSE 81; TEMP 97.4
--- NOTE | 2020-08-23 22:18 | NUR ---
Patient alert and oriented, and able to make needs known. Denies having pain and discomfort. Peripheral INT to right forearm. Site wthout redness, warmth, swelling, and pain. Denies having SOB and dyspnea. LS CTA in upper lobes, diminished in lower. Respirations even and unlabored. HRR. Telemetry in place. Capillary refill less than 3 seconds. Non-tenting skin turgor. BSAx4. Abdomen firm and distended. Patient has trunk/scrotal, and 2+ edema BLE. Voices no questions, needs, or concerns at this time. Resting in recliner with call light within reach.
[2020-08-23 23:31] VITALS: BP 91/63; PULSE 79; TEMP 97.5
[2020-08-24] VITALS (9 sets, daily range): BP systolic 78–110; BP diastolic 38–55; PULSE 70–81; TEMP 97.3–98.1
--- NOTE | 2020-08-24 06:02 | NUR ---
Patient received PRN APAP once this shift for abdominal pain and discomfort. Has voiced no further questions, needs, or concerns at this time. Resting in bed with call light within reach.
[2020-08-24 06:39] LABS: BASO % 0.3 % (0.0-2.0); EOS # 0.1 (0.0-0.7); EOS % 3.7 % (0-4.0); GRAN % 67.4 % (42.2-75.2); LYMPH # 0.5 (1.2-3.4); LYMPH % 18.2 % (20.0-51.0); MEAN CELL VOLUME 84 fl (80.0-100.0); MEAN CORPUSCULAR HGB CONC 30 g/dl (33.0-37.0); MEAN PLATELET VOLUME 9.1 fl (7.4-10.4); MONO # 0.3 (0.1-0.6); MONO % 10.4 % (1.7-9.3); PLATELET COUNT 87 K/mm3 (130-400); RED BLOOD COUNT 2.97 M/mm3 (4.20-5.60); REDCELL DISTRIBUTION WIDTH-CV 15.6 % (11.5-14.5)
[2020-08-24 06:52] LABS: HEMOGLOBIN 7.6 g/dl (13.5-18.0); MEAN CORPUSCULAR HEMOGLOBIN 26 pg (27.0-31.0)
[2020-08-24 06:56] LABS: CALCIUM 7.1 mg/dL (8.4-10.2); CREATININE, serum 1.65 (0.66-1.25); POTASSIUM 3.9 mmol/L (3.4-5.0)
--- NOTE | 2020-08-24 07:33 | NUR ---
PT DENIES PAIN, SITTING UP IN BED EATING BREAKFAST, NO OTHER NEEDS.
--- NOTE | 2020-08-24 08:07 | NUR ---
NOTIFIED NABIL RUSSELL OF LOW BP AND SCHEDULED LASIX. LASIX PLACED ON HOLD
--- NOTE | 2020-08-24 08:20 | NUR ---
IV FLUSHED, CDI, ASSESSMENT PERFORMED, MEDICATIONS GIVEN, OVERALL PLEASANT, AOX4, VITALS REVIEWED, NO OTHER NEEDS.
--- NOTE | 2020-08-24 10:39 | NUR ---
concerned about administration of lasix and a possible paracentesis, talked to richie turcios who notified me it was cardiology orders and they were confident he would be ok. pt napping in room, albumin hanging, bp taken before administration was 92/55
--- NOTE | 2020-08-24 10:57 | NUR ---
CALLED ULTRASOUND ABOUT PARACENTESIS ORDER, PRINTING CONSENT
--- NOTE | 2020-08-24 11:48 | NUR ---
ALBUMIN STILL INFUSING, CONSENT SIGNED FOR PARACENTESIS. NO OTHER NEEDS
--- NOTE | 2020-08-24 12:01 | NUR ---
PT TAKEN DOWN FOR PARACENTESIS
--- NOTE | 2020-08-24 12:46 | NUR ---
First visit from the phlebotomist supervisor/instructor. No needs right now.
--- NOTE | 2020-08-24 14:13 | NUR ---
PT RETURNED FROM PARACENTESIS
--- NOTE | 2020-08-24 15:22 | NUR ---
TYLENOL GIVEN DUE TO PT REPORTING ABD PAIN.
--- NOTE | 2020-08-24 16:08 | NUR ---
TECH ALERTED ME PT HAVING LOW BP. ENTERED ROOM AND PT SLEEPING. WOKE PT UP, PT DENIES LIGHTHEADEDNESS OR DIZZINESS. MANUAL BP READ 81/48. DR. VILLARREAL NOTIFIED.
--- NOTE | 2020-08-24 16:56 | NUR ---
NOTIFIED NABIL RUSSELL OF MOST RECENT MANUAL PRESSURE. ORDERED TO RECHECK IN AN HOUR. PT STILL ASYMPTOMATIC, SITTING UP EATING DINNER.
--- NOTE | 2020-08-24 17:39 | NUR ---
PT CONTINUES TO BE HYPOTENSIVE, LARGE AMOUNT OF FLUID TAKEN OFF IN PARACENTESIS, PHYSICIAN AWARE, ALBUMIN INFUSING, PT REPORTING PAIN BUT TOO SOON TO GIVE TYLENOL A SECOND TIME. PT FREQUENTLY NEEDING TO USE THE RESTROOM. LASIX ON HOLD FOR TONIGHT.
--- NOTE | 2020-08-24 18:17 | NUR ---
ATTEMPTED TO USE TWO HATS IN TOILET TO COLLECT URINE, PT MISSED AND URINE ENDED UP ALL OVER THE FLOOR.
--- NOTE | 2020-08-24 19:13 | NUR ---
pt used cord in bathroom, tech entered and found iv out of pt with blood on gown and floor, albumin stopped and 40ml left in bag. pressure applied to iv site and wrapped with coban. brief placed on pt, gown changed, pt assisted back to bed.
--- NOTE | 2020-08-24 19:50 | NUR ---
Patient assessed at this time. Alert and oriented x 4, and able to make needs known. Reported mild pain to abdomen. New IV started to left forearm. Started Albumin. Denies having SOB and dyspnea. LS CTA in upper lobes, diminished in lower. Respirations even and unlabored. HRR. Telemetry in placed. Capillary refill less than 3 seconds. Non-tenting skin turgor. BSAx4. Abdomen firm, distended. Dressing to abdomen CDI. Patient continues to have scrotal edema and 2+ edema BLE. Redness/purple discoloration to BLE. Patient voices no questions, needs, or concerns at this time. Resting in bed with call light within reach. High fall risk precautions remain in place.
[2020-08-25] VITALS (7 sets, daily range): BP systolic 83–97; BP diastolic 46–59; PULSE 67–82; TEMP 97.4–98.3
--- NOTE | 2020-08-25 05:55 | NUR ---
Patient has been resting in bed with call light within reach. Patient has been urinating more frequently tonight. Has decreased scrotal and BLE edema compared to last night. BPs have been staying 80-90s/40-50s. PA is aware, and received Albumin per orders. Voices no questions, needs, or concerns at this time. Received PRN APAP once this shift for abdominal pain.
--- NOTE | 2020-08-25 07:08 | NUR ---
PT SLEEPING COMFORTABLY IN ROOM, REPORTING ABD PAIN FOR LEATHER CRAFTER
[2020-08-25 07:21] LABS: BASO % 0.4 % (0.0-2.0); EOS # 0.1 (0.0-0.7); EOS % 2.8 % (0-4.0); GRAN # 1.7 (1.4-6.5); GRAN % 66.7 % (42.2-75.2); LYMPH # 0.4 (1.2-3.4); LYMPH % 17.4 % (20.0-51.0); MEAN CELL VOLUME 85 fl (80.0-100.0); MEAN CORPUSCULAR HGB CONC 31 g/dl (33.0-37.0); MEAN PLATELET VOLUME 9.8 fl (7.4-10.4); MONO # 0.3 (0.1-0.6); MONO % 12.3 % (1.7-9.3); PLATELET COUNT 81 K/mm3 (130-400); RED BLOOD COUNT 2.86 M/mm3 (4.20-5.60); REDCELL DISTRIBUTION WIDTH-CV 15.7 % (11.5-14.5)
[2020-08-25 07:23] LABS: HEMATOCRIT 24.2 % (42.0-52.0); HEMOGLOBIN 7.4 g/dl (13.5-18.0); MEAN CORPUSCULAR HEMOGLOBIN 26 pg (27.0-31.0)
[2020-08-25 07:30] LABS: ALBUMIN 2.6 gm/dL (3.5-5.0); BILIRUBIN,TOTAL 0.4 mg/dL (0.0-1.0); CALCIUM 7.1 mg/dL (8.4-10.2); CREATININE, serum 1.5 (0.66-1.25); MAGNESIUM 2.1 mg/dL (1.6-2.3); TOTAL PROTEIN 4.9 gm/dL (6.4-8.2)
--- NOTE | 2020-08-25 08:20 | NUR ---
PT WAI, AOX4, TOOK TYLENOL FOR MINOR ABD PAIN IN AM WITH OTHER MEDICATIONS, BROUGHT PT OJ AND WATER PER PT REQUEST, VITALS REVIEWED, ASSESSMENT PERFORMED. NO OTHER NEEDS.
--- NOTE | 2020-08-25 10:27 | NUR ---
OBTAINED BP BEFORE ADMINISTERING MEDICATION. BP 83/50, ASKED DREW FERRER AND DR. VILLARREAL IT WAS STILL OK TO ADMINSITER MEDICATION, THEY STILL WANTED TO GIVE IT, CARDIOLOGY IS COMFORTABLE WITH BP'S IN THE 80'S. ADMINISTERED PILL, GAVE PT GRAPE JUICE REQUESTED, PT REFUSING BATH OR LINEN CHANGE. UNABLE TO COLLECT ACCURATE OUTPUT DUE TO EDEMETOUS SCROTUM (CANNOT USE HAT OR URINAL), AND REFUSING MCCOY.
--- NOTE | 2020-08-25 11:34 | NUR ---
PT HAVING ASYMPTOMATIC HYPOTENSION. BP INC DESPITE DIURETIC ADMINISTRATION
--- NOTE | 2020-08-25 14:53 | NUR ---
I met with patient at bedside today to talk about goals of care. He states that he is 80 soon and just wants to live out his life in his home with the medications that he needs. He does request Meals on Wheels be arranged for him. He was interested in looking into tele med visits if they would be possible. He isn't wanting any big procedures or "being cut on". He did report that he lost his son very recently and that this has been very hard on him. He reports that he just wants to live out his natural life in his home.
--- NOTE | 2020-08-25 16:34 | NUR ---
Coatings Inspector followed up with patient about Home Health Services. Patient states he does not want HH services but is interested in Meals on Wheels. SW contacted the [facility] and left a message for MOW coordinator. Patient had palliative consult. Janeth Palliative RN advised SW that what is most important to patient is returning home. SW will continue to follow.
[2020-08-25 18:30] LABS: HEMATOCRIT 26.2 % (42.0-52.0); HEMOGLOBIN 7.8 g/dl (13.5-18.0)
--- NOTE | 2020-08-25 18:31 | NUR ---
UNEVENTFUL SHIFT, UP TO BATHROOM FREQUENTLY, NO OTHER NEEDS
--- NOTE | 2020-08-25 20:06 | NUR ---
Patient assessed at this time. Alert and oriented, and able to make needs known. Denies having pain and discomfort at this time. Peripheral INT to left forearm. Site without redness, warmth, swelling, and pain. Denies having SOB and dyspnea. LS CTA in upper lobes, diminished in lower. Respirations even and unlabored. HRR. Telemetry in place. Capillary refill less than 3 seconds. Non-tenting skin turgor. BSAx4. Abdomen soft and non-tender. Decreased swelling to abdomen, scortum, and BLE. Redness/discoloration continues to BLE and scrotum. Dressing to abdomen from paracentesis is CDI. Voices no questions, needs, or concerns at this time. Resting in bed with call light within reach. High fall risk precautions in place.
--- NOTE | 2020-08-25 23:40 | NUR ---
Patient complaining of abdominal pain when walking to bathroom. Given PRN APAP as requested.
[2020-08-26] VITALS (8 sets, daily range): BP systolic 71–103; BP diastolic 37–64; PULSE 71–76; TEMP 97.5–97.9
--- NOTE | 2020-08-26 05:56 | NUR ---
Patient has gone to the bathroom multiple times during the night. Received PRN APAP once this shift for abdominal pain. Patient's BP was 70s/40s around 0400. DREW Moore aware, and recheck around 0500 was 80s/50s. PA aware. Patient continues to be asymptomatic with low BPs. Resting in bed with call light within reach. Voices no further questions, needs, or concerns at this time. High fall risk precautions remain in place.
[2020-08-26 07:05] LABS: BASO % 0.4 % (0.0-2.0); EOS # 0.1 (0.0-0.7); GRAN # 1.8 (1.4-6.5); HEMATOCRIT 25.7 % (42.0-52.0); HEMOGLOBIN 7.9 g/dl (13.5-18.0); LYMPH # 0.5 (1.2-3.4); LYMPH % 19.6 % (20.0-51.0); MEAN CELL VOLUME 84 fl (80.0-100.0); MEAN CORPUSCULAR HEMOGLOBIN 26 pg (27.0-31.0); MEAN CORPUSCULAR HGB CONC 31 g/dl (33.0-37.0); MEAN PLATELET VOLUME 9.3 fl (7.4-10.4); MONO # 0.3 (0.1-0.6); MONO % 9.6 % (1.7-9.3); PLATELET COUNT 89 K/mm3 (130-400); RED BLOOD COUNT 3.07 M/mm3 (4.20-5.60); REDCELL DISTRIBUTION WIDTH-CV 15.6 % (11.5-14.5)
[2020-08-26 07:25] LABS: CALCIUM 6.9 mg/dL (8.4-10.2); CREATININE, serum 1.47 (0.66-1.25); MAGNESIUM 1.9 mg/dL (1.6-2.3); POTASSIUM 4.1 mmol/L (3.4-5.0)
--- NOTE | 2020-08-26 10:14 | NUR ---
Assessment complete. Patient siting up at side of bed at time of entry. States that he feels better today. No complaints of pain or discomfort at this time. He moved from bed to chair while I was in the room, ambulated well. Swelling in his legs has improved but it still present. No other needs were expressed at this time. Call light is in reach.
--- NOTE | 2020-08-26 13:37 | NUR ---
Caramel Maker contacted Emily at [facility] to follow up on Meals on Wheels. Emily advised she spoke with patient yesterday by phone. Patient will need to contact Emily by phone once he is home so that Emily can complete assessment over the phone, then patient can begin having meals delivered. SW will continue to follow.
--- NOTE | 2020-08-26 17:09 | NUR ---
Patient has had a very uneventful shift. He spent part of the day in the chair and part of the in the bed. Patient seems much more comfortable today, minimal needs. Will continue to montior. Call light is in reach.
--- NOTE | 2020-08-26 20:50 | NUR ---
Patient assessed at this time. Alert and oriented x 4, and able to make needs known. Complained of level 2 pain to abdomen. Given PRN APAP as requested for pain. Peripheral INT to left forearm flushed. Site without redness, warmth, swelling, and pain. Denies having SOB and dyspnea. LS CTA in upper lobes, diminished in lower. Respirations even and unlabored. HRR. Telemetry in place. Capillary refill less than 3 seconds. Non-tenting skin turgor. BSAx4. Abdomen soft and non-tender. Hernia present. 1+ edema BLE, and edema continues to scrotum. Patient states he he feeling much better and ready to go home. Continues to have low BPs, but asymptomatic. Voices no questions, needs, or concerns at this time. Resting in bed with call light within reach.
[2020-08-27 00:11] VITALS: BP 92/50; PULSE 71; TEMP 97.6
[2020-08-27 04:23] VITALS: BP 91/55; PULSE 73; TEMP 98.7
--- NOTE | 2020-08-27 05:34 | NUR ---
Patient has received PRN APAP twice this shift for abdominal pain. Has denied having any other pain or discomfort. Has been resting in bed with call light within reach. Has called for assistance with going to the bathroom. Voices no questions, needs, or concerns at this time.
[2020-08-27 07:18] VITALS: BP 91/55; PULSE 71; TEMP 97.5
[2020-08-27 07:36] LABS: BASO % 0.4 % (0.0-2.0); EOS # 0.1 (0.0-0.7); EOS % 3.4 % (0-4.0); GRAN # 1.7 (1.4-6.5); GRAN % 64.1 % (42.2-75.2); LYMPH # 0.6 (1.2-3.4); LYMPH % 21.4 % (20.0-51.0); MEAN CELL VOLUME 84 fl (80.0-100.0); MEAN CORPUSCULAR HGB CONC 31 g/dl (33.0-37.0); MONO # 0.3 (0.1-0.6); MONO % 10.7 % (1.7-9.3); PLATELET COUNT 86 K/mm3 (130-400); RED BLOOD COUNT 3.06 M/mm3 (4.20-5.60); REDCELL DISTRIBUTION WIDTH-CV 15.7 % (11.5-14.5)
[2020-08-27 07:47] LABS: CALCIUM 7.1 mg/dL (8.4-10.2); CREATININE, serum 1.36 (0.66-1.25); POTASSIUM 4.1 mmol/L (3.4-5.0)
[2020-08-27 07:48] LABS: HEMATOCRIT 25.7 % (42.0-52.0); MEAN CORPUSCULAR HEMOGLOBIN 26 pg (27.0-31.0)
--- NOTE | 2020-08-27 08:35 | NUR ---
Assessment complete. Patient resting in bed on entry, requesting when he would be going home. He seems to be frustrated that "Drs are never going to figure out what is wrong with me" and "according to [facility] I was supposed to a few years ago but I never did". I assured him we will see what is determined on rounds since his pressure is still pretty low. No complaints of pain or discomfort. IV site CD&I, flushed well. Will continue to monitor. Call light is in reach.
[2020-08-27] MEDS ORDERED: DEMADEX10 MG PO (09:26)
[2020-08-27] MEDS ORDERED: ASPIRIN E.C. 8181 MG PO (09:27)
[2020-08-27] MEDS ORDERED: ADVOCATE BLOOD1 EAC1 MC (09:36)
--- NOTE | 2020-08-27 10:17 | NUR ---
I met with patient today to talk about going home and suggestions for being able to remain at home. Strongly encouraged home health services for nursing and therapy to work with his doctor to monitor bp's,labs, setting up scheduled times for paracentesis, and general follow through with his health. Pt initially agreed to home health services but became more reluctant as we discussed contacting a specific agency and setting up visit. Support provided and home health strongly encouraged.
[2020-08-27 12:24] VITALS: BP 100/51; PULSE 81; TEMP 97.5
--- NOTE | 2020-08-27 14:16 | NUR ---
Patient left the floor at this time. Discharge paperwork was discussed. Patient seemed frustrated with the amount of appointments and paperwork I was handing him and was dismissive with some of it but I attempted to stay positive. No further questions or concerns. Patient escorted out via wheelchair.
--- NOTE | 2020-08-27 16:47 | NUR ---
Wire Frame Lamp Shade Maker attended clinical rounds with the team and patient ready for discharge home today. Home Health services are strongly encouraged during rounds. MARTA met with patient who is agreeable to a referral being sent to [facility] but also states he may need to think about it some more. Patient would like to switch primary care provider to Dr. Hurtado in [place]. MARTA contacted Erika at Dr. Perry office and set up an appointment for 08/31/20 @1500. MARTA provided appointment to community services officer and also informed patient of appointment. MARTA assisted patient in completing new patient paperwork and returned documents and discharge orders to Erika at Dr. Hurtado's office. MARTA contacted Paige at [facility] and faxed referral/orders. MARTA contacted patient's son, Sagar who advised he will hop picker patient today. No additional needs at this time.
== END 2020-08-27 14:34 | disposition home or self-care (01) | DRG 432 ==
LOC: COL.ER 13:40 → MEDICAL 18:10
PROVIDERS: Emergency Medicine; Internal Medicine Gastroenterology; Nurse Practitioner Family; Physician Assistant; ADMIT Student in an Organized Health Care Education/Training Program
PROC: 0W9G3ZZ Drainage of Peritoneal Cavity, Percutaneous Approach (ICD-10-PCS; principal; 2020-08-20)
PROC: 0W9G3ZZ Drainage of Peritoneal Cavity, Percutaneous Approach (ICD-10-PCS; 2020-08-24)
DX: K74.60 Unspecified cirrhosis of liver (principal); I50.33 Acute on chronic diastolic (congestive) heart failure; R18.8 Other ascites; I13.0 Hypertensive heart and chronic kidney disease with heart failure and stage 1 through stage 4 chronic kidney disease, or unspecified chronic kidney disease; I48.20 Chronic atrial fibrillation, unspecified; D50.0 Iron deficiency anemia secondary to blood loss (chronic); I25.5 Ischemic cardiomyopathy; E03.9 Hypothyroidism, unspecified; I48.91 Unspecified atrial fibrillation; E78.5 Hyperlipidemia, unspecified; M10.9 Gout, unspecified; N18.30 Chronic kidney disease, stage 3 unspecified; Z20.822 Contact with and (suspected) exposure to COVID-19; D69.6 Thrombocytopenia, unspecified; D72.819 Decreased white blood cell count, unspecified; I35.0 Nonrheumatic aortic (valve) stenosis; E87.5 Hyperkalemia; Z87.891 Personal history of nicotine dependence; Z91.14 Patient's other noncompliance with medication regimen; Z95.810 Presence of automatic (implantable) cardiac defibrillator; I95.9 Hypotension, unspecified
CPT/HCPCS: 99223-AI; 99232-AI; 99233-AI; 99239; J0610; J1815; J1940; P9047

== ENCOUNTER 2020-10-14 04:30 | Emergency (ER) | payer MEDICARE ==
[~2020-10-14] VITALS: Ht 175.3 cm; Wt 102.3 kg
[2020-10-14 04:30] VITALS: TEMP 96.3
[~2020-10-14 04:30] MED LIST changes: +ADVOCATE BLOOD1 EAC1 MC; +ASPIRIN E.C. 8181 MG PO; +COREG 6.256.25 MG/TA PO; +DEMADEX10 MG PO; +K-DUR20 MEQ PO
[2020-10-14 05:08] VITALS: BP 00/00; PULSE 0
== END 2020-10-14 09:17 | disposition expired ==
LOC: COL.ER 04:38
DX: I46.9 Cardiac arrest, cause unspecified (principal); I12.9 Hypertensive chronic kidney disease with stage 1 through stage 4 chronic kidney disease, or unspecified chronic kidney disease; N18.30 Chronic kidney disease, stage 3 unspecified; I48.91 Unspecified atrial fibrillation; E03.9 Hypothyroidism, unspecified; Z91.14 Patient's other noncompliance with medication regimen; Z79.82 Long term (current) use of aspirin; Z79.890 Hormone replacement therapy
CPT/HCPCS: J0171